=== PATIENT | male | born 1955 | race African-American/Black ===

== ENCOUNTER 2017-09-14 20:42 | Emergency (ER) | payer OTHER ==
[2017-09-14 21:30] LABS: #Eosinphils 0.2 thou/uL (0.0-0.7); #Lymphocytes 2.3 thou/uL (1.20-3.40); #Monocytes 0.8 thou/uL (0.11-0.59); #Neutrophils 6.7 thou/uL (1.40-6.50); %Basophils 0.4 % (0.0-1.0); %Eosinophils 1.9 % (0.0-10.0); %Lymphocytes 23.4 % (21.0-51.0); %Monocytes 7.6 % (0.0-10.0); %Neutrophils 66.7 % (42.0-75.0); Hemoglobin 14.8 g/dL (14.0-18.0); Mean Corpuscular HGB CONC 32.5 g/dL (32.0-36.0); Mean Corpuscular Hemoglobin 30.6 pg (27.0-31.0); Platelet Count 219 thou/uL (130-400); RBC Distribution Width 11.8 % (11.5-14.5); Red Blood Cell (RBC) Count 4.83 mill/uL (4.70-6.10)
--- NOTE | 2017-09-14 21:40 | RAD ---
PORTABLE CHEST: 09/14/17 HISTORY: Fell in shower. Syncopal episode. Heart size is within normal limits. The aorta is tortuous. The lungs are clear of infiltrates. Granul omas are noted in the left lung. IMPRESSION: No active intrathoracic disease. POS: [facility]
[2017-09-14 21:47] LABS: ALT (SGPT) 42 U/L (8-55); AST (SGOT) 21 U/L (5-34); Albumin 3.4 g/dL (3.5-5.0); Alkaline Phosphatase 56 U/L (40-150); Anion Gap 10 mmol/L (10-20); BUN (Urea Nitrogen) 20 mg/dL (8.4-25.7); Bilirubin, Total 0.4 mg/dL (0.2-1.2); CK (CPK) 177 U/L (30-200); Calc. Creatinine Clearance 0 mL/min (70-130); Calcium 8.3 mg/dL (7.8-10.44); Carbon Dioxide 27 mmol/L (22-29); Chloride 103 mmol/L (98-107); Estimated GFR-MDRD 74; Globulin 2.1 g/dL (2.4-3.5); Glucose 123 mg/dL (70-105); Lipase 17 U/L (8-78); Potassium 3.4 mmol/L (3.5-5.1); Protein, Total 5.5 g/dL (6.0-8.3); Sodium 137 mmol/L (136-145)
[2017-09-14 21:51] LABS: CKMB 1.8 ng/mL (0-6.6); Troponin I Less than 0.010 ng/mL (< 0.028)
--- NOTE | 2017-09-14 23:14 | CT ---
CT OF BRAIN PERFORMED WITHOUT CONTRAST ENHANCEMENT: 09/14/17 HISTORY: Syncope and collapse. Patient fell in shower. Two hematomas are noted. Head injury. The ventricular and cisternal system is within normal limits. There is no signs of intracerebral hemo rrhage or extra-axial fluid collections. No mass lesion or mass effect. Incidental note is made of a scalp lipoma in the right occipital region. No fractures. Mastoid air cells and visualized sinuses ar e clear. IMPRESSION: No acute intracranial abnormalities. POS: [facility]
== END 2017-09-14 23:55 | disposition home or self-care (01) ==
LOC: ERS 20:42
DX: R55 Syncope and collapse (principal); R22.0 Localized swelling, mass and lump, head; G43.909 Migraine, unspecified, not intractable, without status migrainosus; I10 Essential (primary) hypertension; F32.9 Major depressive disorder, single episode, unspecified; F17.210 Nicotine dependence, cigarettes, uncomplicated; Z79.899 Other long term (current) drug therapy; W06.XXXA Fall from bed, initial encounter
CPT/HCPCS: 36415; 70450; 71045; 80053; 82553; 83690; 84484; 85025; 93005

== ENCOUNTER 2024-01-16 06:50 | Inpatient (IN) | payer MEDICARE, MEDICAID ==
[2024-01-16] MEDS ORDERED: fentaNYL 50 mcg/mL 1 mL Vial ONE ×3 (07:33→11:53)
[2024-01-16 09:04] LABS: #Basophils Less than 0.03 10x3/uL (0.0-0.2); #Eosinphils Less than 0.03 10x3/uL (0.0-0.7); %Basophils 0.1 % (0.0-1.0); %Lymphocytes 1.1 % (21.0-51.0); %Monocytes 2.7 % (0.0-10.0); %Neutrophils 95.5 % (42.0-75.0); Hematocrit 27.6 % (42.0-52.0); Hemoglobin 8.3 g/dL (14.0-18.0); Mean Corpuscular HGB CONC 30.1 g/dL (32.0-36.0); Mean Corpuscular Hemoglobin 27.5 pg (27.0-31.0); Mean Corpuscular Volume 91.4 fL (78.0-98.0); Mean Platelet Volume 9.8 fL (7.4-10.4); Platelet Count 268 10x3/uL (130-400); RBC Distribution Width 20.2 % (11.5-14.5); Red Blood Cell (RBC) Count 3.02 mill/uL (4.70-6.10)
[2024-01-16] MEDS ORDERED: Iopamidol-370 76% 500 ML MDV (1 ML CHARGE) ONE (09:05)
[2024-01-16 09:19] LABS: ALT (SGPT) 13 U/L (8-55); AST (SGOT) 11 U/L (5-34); Albumin 2.3 g/dL (3.4-4.8); Alkaline Phosphatase 72 U/L (40-110); Anion Gap 20 mmol/L (10-20); BUN (Urea Nitrogen) 11 mg/dL (8.4-25.7); Bilirubin, Total 0.9 mg/dL (0.2-1.2); Calc. Creatinine Clearance 0 mL/min (70-130); Calcium 8.5 mg/dL (7.8-10.44); Carbon Dioxide 29 mmol/L (23-31); Chloride 97 mmol/L (98-107); Estimated GFR 98; Globulin 3.9 g/dL (2.4-3.5); Glucose 126 mg/dL (80-115); Potassium 3.2 mmol/L (3.5-5.1); Protein, Total 6.2 g/dL (5.8-8.1); Sodium 143 mmol/L (136-145)
[2024-01-16 09:25] LABS: Troponin I 0.014 ng/mL (< 0.028)
[2024-01-16] MEDS ORDERED: Sodium Chloride 0.9% 100 ML ONE (10:44)
[2024-01-16] MEDS ORDERED: Cefepime 1 GM VIAL ONE (10:44)
[2024-01-16] MEDS ORDERED: Vancomycin 1 GM/200 ML (FROZEN) BAG ONE (11:53)
[2024-01-16] MEDS ORDERED: Calcium Carbonate 500 MG ChewTAB PO PRN (14:44)
[2024-01-16] MEDS ORDERED: Ondansetron PF 4 MG/2 ML Vial IVP PRN (14:44)
[2024-01-16] MEDS ORDERED: Senokot S 8.6-50 MG TAB PO PRN (14:44)
[2024-01-16] MEDS ORDERED: Acetaminophen 325 MG TAB PO PRN (14:44)
[2024-01-16] MEDS ORDERED: Ipratropium/Albuterol 3 ML NEB NEB PRN (15:01)
[2024-01-16] MEDS ORDERED: Benzonatate 100 MG CAP PO PRN (15:01)
[2024-01-16] MEDS ORDERED: Morphine 2 MG/ML VIAL SLOW IVP PRN (15:01)
[2024-01-16] MEDS: Sodium Chloride 0.9% 500 ML IV SCH (15:45)
[2024-01-16] MEDS: Morphine 4 MG/ML VIAL SLOW IVP PRN ×2 (16:13→23:56)
[2024-01-16 16:19] VITALS: BMI 26.6
[2024-01-16] MEDS: Albumin 25% 25 GM (100 mL) BOT IVPB SCH (17:51)
[2024-01-16] MEDS: Ampicillin/Sulbactam 3 GM in Sodium Chloride 0.9% 100 ML IVPB SCH (18:01)
[2024-01-16] MEDS: HYDROmorphone 0.5 MG/0.5 ML SYRINGE SLOW IVP SCH (19:49)
[2024-01-16 23:08] LABS: Lactic Acid 1.5 mmol/L (0.5-2.2)
[2024-01-17 04:56] LABS: #Basophils Less than 0.03 10x3/uL (0.0-0.2); #Eosinphils Less than 0.03 10x3/uL (0.0-0.7); %Basophils 0.1 % (0.0-1.0); %Eosinophils 0.1 % (0.0-10.0); %Lymphocytes 1.6 % (21.0-51.0); %Monocytes 3.4 % (0.0-10.0); %Neutrophils 94.3 % (42.0-75.0); Hematocrit 22.6 % (42.0-52.0); Hemoglobin 6.9 g/dL (14.0-18.0); Mean Corpuscular HGB CONC 30.5 g/dL (32.0-36.0); Mean Corpuscular Hemoglobin 27.2 pg (27.0-31.0); Mean Platelet Volume 10.4 fL (7.4-10.4); Platelet Count 228 10x3/uL (130-400); RBC Distribution Width 19.9 % (11.5-14.5); Red Blood Cell (RBC) Count 2.54 mill/uL (4.70-6.10)
[2024-01-17 05:17] LABS: ALT (SGPT) 5 U/L (8-55); AST (SGOT) 10 U/L (5-34); Albumin 2.8 g/dL (3.4-4.8); Alkaline Phosphatase 63 U/L (40-110); Anion Gap 15 mmol/L (10-20); BUN (Urea Nitrogen) 9 mg/dL (8.4-25.7); Bilirubin, Total 0.8 mg/dL (0.2-1.2); Calc. Creatinine Clearance 124 mL/min (70-130); Calcium 8.6 mg/dL (7.8-10.44); Carbon Dioxide 31 mmol/L (23-31); Chloride 102 mmol/L (98-107); Estimated GFR 104; Glucose 112 mg/dL (80-115); Potassium 3.2 mmol/L (3.5-5.1); Protein, Total 5.8 g/dL (5.8-8.1); Sodium 145 mmol/L (136-145)
[2024-01-17] MEDS ORDERED: Digoxin 0.125 MG TAB PO SCH (09:00)
[2024-01-17] MEDS ORDERED: Tamsulosin HCl 0.4 MG CAP PO SCH (09:00)
[2024-01-17] MEDS ORDERED: fentaNYL 100 mcg/hour Patch TD SCH (09:00)
[2024-01-17] MEDS ORDERED: POLYETHYLENE GLYCOL PO SCH (09:00)
[2024-01-17] MEDS: Enoxaparin 40 MG (0.4 mL) SYRINGE SC SCH (09:43)
[2024-01-17] MEDS ORDERED: METOPROLOL TARTRATE 75 MG PO SCH (10:14)
[2024-01-17] MEDS ORDERED: ACETAMINOPHEN 650 MG PO PRN (10:14)
[2024-01-17] MEDS ORDERED: Iopamidol-370 76% 500 ML MDV (1 ML CHARGE) ONE (10:54)
[2024-01-17] MEDS: fentaNYL 100 mcg/hour Patch TD SCH (12:26)
[2024-01-17] MEDS: Finasteride 5 MG TAB PO SCH (12:26)
[2024-01-17 17:29] LABS: %Basophils 0.1 % (0.0-1.0); %Lymphocytes 1.5 % (21.0-51.0); %Monocytes 2.9 % (0.0-10.0); Hematocrit 22.7 % (42.0-52.0); Hemoglobin 6.9 g/dL (14.0-18.0); Mean Corpuscular HGB CONC 30.4 g/dL (32.0-36.0); Mean Corpuscular Hemoglobin 27.2 pg (27.0-31.0); Mean Corpuscular Volume 89.4 fL (78.0-98.0); Platelet Count 209 10x3/uL (130-400); Red Blood Cell (RBC) Count 2.54 mill/uL (4.70-6.10)
[2024-01-17 17:30] LABS: #Basophils Less than 0.03 10x3/uL (0.0-0.2); #Eosinphils Less than 0.03 10x3/uL (0.0-0.7)
[2024-01-17] MEDS: Mirtazapine 15 MG TAB PO SCH (20:56)
[2024-01-17] MEDS: Metoprolol Tartrate 25 MG TAB PO SCH (20:57)
[2024-01-17] MEDS: Senokot S 8.6-50 MG TAB PO SCH (20:57)
[2024-01-17] MEDS: OXcarbazepine 150 MG TAB PO SCH (20:57)
[2024-01-17] MEDS ORDERED: Mirtazapine 15 MG TAB PO SCH (21:00)
[2024-01-17] MEDS ORDERED: OXCARBAZEPINE 150 MG PO SCH (21:00)
[2024-01-18] MEDS: Acetaminophen 325 MG TAB PO PRN (05:07)
[2024-01-18 07:34] LABS: Hematocrit 29.7 % (42.0-52.0); Hemoglobin 9.1 g/dL (14.0-18.0); Mean Corpuscular HGB CONC 30.6 g/dL (32.0-36.0); Mean Corpuscular Hemoglobin 27.7 pg (27.0-31.0); Mean Corpuscular Volume 90.3 fL (78.0-98.0); Mean Platelet Volume 10.8 fL (7.4-10.4); Platelet Count 198 10x3/uL (130-400); RBC Distribution Width 19.1 % (11.5-14.5); Red Blood Cell (RBC) Count 3.29 mill/uL (4.70-6.10)
[2024-01-18 07:35] LABS: ALT (SGPT) 7 U/L (8-55); AST (SGOT) 9 U/L (5-34); Alkaline Phosphatase 91 U/L (40-110); Anion Gap 16 mmol/L (10-20); BUN (Urea Nitrogen) 6 mg/dL (8.4-25.7); Bilirubin, Total 1.2 mg/dL (0.2-1.2); Calc. Creatinine Clearance 113 mL/min (70-130); Calcium 8.6 mg/dL (7.8-10.44); Carbon Dioxide 33 mmol/L (23-31); Chloride 100 mmol/L (98-107); Estimated GFR 102; Glucose 91 mg/dL (80-115); Potassium 2.6 mmol/L (3.5-5.1); Sodium 146 mmol/L (136-145)
[2024-01-18 08:32] LABS: Anisocytosis SLIGHT = 6-15 cells HPF (0-5); Band 15 % (5-11); Burr Cells SLIGHT = 2-5 cells HPF (0-1); Lymphocytes 1 % (21-51); Monocytes 1 % (0-10); Neutrophil 83 % (42-75); Platelet Adequacy Comment Platelets Normal; Polychromasia SLIGHT = 2-3 cells HPF (0-2); Target Cells MODERATE= 6-15 cells HPF (0-1)
[2024-01-18] MEDS: Digoxin 0.125 MG TAB PO SCH (09:42)
[2024-01-18] MEDS: Tamsulosin HCl 0.4 MG CAP PO SCH (09:44)
[2024-01-18] MEDS: Potassium Chloride 20 MEQ TAB PO SCH (09:44)
[2024-01-18] MEDS: Polyethylene Glycol 3350 17 GM Packet PO SCH (09:45)
[2024-01-18] MEDS ORDERED: Magnevist 469MG/ML 20 ML VIAL ONE ×3 (11:03)
[2024-01-18] MEDS: fentaNYL 100 mcg/hour Patch TD SCH (11:16)
[2024-01-18] MEDS: Morphine 2 MG/ML VIAL SLOW IVP PRN (14:39)
[2024-01-19 06:57] LABS: #Eosinphils Less than 0.03 10x3/uL (0.0-0.7); %Basophils 0.4 % (0.0-1.0); %Eosinophils 0.1 % (0.0-10.0); %Lymphocytes 1.9 % (21.0-51.0); %Monocytes 2.9 % (0.0-10.0); %Neutrophils 93.9 % (42.0-75.0); Hematocrit 32.8 % (42.0-52.0); Hemoglobin 9.7 g/dL (14.0-18.0); Mean Corpuscular HGB CONC 29.6 g/dL (32.0-36.0); Mean Corpuscular Hemoglobin 28.1 pg (27.0-31.0); Mean Corpuscular Volume 95.1 fL (78.0-98.0); Mean Platelet Volume 12.5 fL (7.4-10.4); Platelet Count 139 10x3/uL (130-400); RBC Distribution Width 20.2 % (11.5-14.5); Red Blood Cell (RBC) Count 3.45 mill/uL (4.70-6.10)
[2024-01-19 09:32] VITALS: TEMP 97.6
[2024-01-19] MEDS: Morphine ER 15 MG TAB PO SCH (10:21)
[2024-01-19] MEDS: Fondaparinux Sodium 2.5 MG/0.5 ML SYRINGE SC SCH (10:59)
[2024-01-19 11:11] LABS: ALT (SGPT) 7 U/L (8-55); AST (SGOT) 9 U/L (5-34); Albumin 2.9 g/dL (3.4-4.8); Alkaline Phosphatase 81 U/L (40-110); Anion Gap 19 mmol/L (10-20); BUN (Urea Nitrogen) 7 mg/dL (8.4-25.7); Calc. Creatinine Clearance 124 mL/min (70-130); Calcium 8.7 mg/dL (7.8-10.44); Carbon Dioxide 27 mmol/L (23-31); Chloride 102 mmol/L (98-107); Estimated GFR 104; Globulin 3.7 g/dL (2.4-3.5); Glucose 81 mg/dL (80-115); Potassium 3.3 mmol/L (3.5-5.1); Protein, Total 6.6 g/dL (5.8-8.1); Sodium 145 mmol/L (136-145)
[2024-01-19 16:48] VITALS: BP 129/77
[2024-01-19] MEDS ORDERED: Morphine ER 15 MG TAB PO SCH (21:00)
[2024-01-19] MEDS ORDERED: Senokot S 8.6-50 MG TAB PO SCH (21:00)
[2024-01-20] MEDS ORDERED: Fondaparinux Sodium 2.5 MG/0.5 ML SYRINGE SC SCH (06:00)
== END 2024-01-19 16:35 | disposition home or self-care (01) | DRG 180 ==
LOC: SUATTDRO 06:50 → ERS 06:50 → MSONC 15:27
PROVIDERS: ADMIT Internal Medicine; ATTEND Internal Medicine
DX: C34.92 Malignant neoplasm of unspecified part of left bronchus or lung (principal); J96.21 Acute and chronic respiratory failure with hypoxia; E87.20 Acidosis, unspecified; J91.0 Malignant pleural effusion; J98.19 Other pulmonary collapse; E87.6 Hypokalemia; E88.09 Other disorders of plasma-protein metabolism, not elsewhere classified; D72.829 Elevated white blood cell count, unspecified; I10 Essential (primary) hypertension; I48.91 Unspecified atrial fibrillation; N40.0 Benign prostatic hyperplasia without lower urinary tract symptoms; Z66 Do not resuscitate; J44.9 Chronic obstructive pulmonary disease, unspecified; Z92.3 Personal history of irradiation; Z87.891 Personal history of nicotine dependence; Z79.01 Long term (current) use of anticoagulants; Z79.899 Other long term (current) drug therapy; Z92.21 Personal history of antineoplastic chemotherapy
CPT/HCPCS: 36415; 36416; 36430; 70553; 71045; 71275; 72157; 72158; 74177; 80053; 83605; 83880; 84145; 84484; 85025; 86850; 86900; 86901; 87040; 93005; 94760; 96374; 96375; 96376; A9579; J0295; J0692; J1170; J1650; J1652; J2270; J2272; J3010; J3370-JW; J3490; P9016; P9047; Q9967

== ENCOUNTER 2024-01-20 21:35 | Inpatient (IN) | payer MEDICARE, MEDICAID ==
[2024-01-20 23:01] LABS: Hematocrit 33.5 % (42.0-52.0); Mean Corpuscular HGB CONC 29.9 g/dL (32.0-36.0); Mean Corpuscular Hemoglobin 28.3 pg (27.0-31.0); Mean Corpuscular Volume 94.9 fL (78.0-98.0); Mean Platelet Volume 10.6 fL (7.4-10.4); Platelet Count 118 10x3/uL (130-400); RBC Distribution Width 19.6 % (11.5-14.5); Red Blood Cell (RBC) Count 3.53 mill/uL (4.70-6.10)
[2024-01-20 23:12] LABS: ALT (SGPT) Less than 5 U/L (8-55); AST (SGOT) 14 U/L (5-34); Albumin 2.6 g/dL (3.4-4.8); Alkaline Phosphatase 76 U/L (40-110); Anion Gap 23 mmol/L (10-20); BUN (Urea Nitrogen) 11 mg/dL (8.4-25.7); Bilirubin, Total 0.9 mg/dL (0.2-1.2); Calc. Creatinine Clearance 0 mL/min (70-130); Calcium 8.8 mg/dL (7.8-10.44); Carbon Dioxide 22 mmol/L (23-31); Chloride 102 mmol/L (98-107); Estimated GFR 101; Globulin 3.5 g/dL (2.4-3.5); Glucose 88 mg/dL (80-115); Lipase 6 U/L (8-78); Magnesium 1.6 mg/dL (1.6-2.6); Potassium 3.9 mmol/L (3.5-5.1); Protein, Total 6.1 g/dL (5.8-8.1); Sodium 143 mmol/L (136-145)
[2024-01-20 23:17] LABS: Troponin I Less than 0.010 ng/mL (< 0.028)
[2024-01-20 23:23] LABS: Anisocytosis MODERATE=16-30 cells HPF (0-5); Band 2 % (5-11); Hypochromia SLIGHT = 6-15 cells HPF (0-5); Lymphocytes 1 % (21-51); Macrocytosis SLIGHT = 6-15 cells HPF (0-5); Monocytes 3 % (0-10); Neutrophil 94 % (42-75); Ovalocytes SLIGHT = 2-5 cells HPF (0-1); Platelet Adequacy Comment Platelets Decreased; Polychromasia SLIGHT = 2-3 cells HPF (0-2); Smudge Cells 4.9 %
[2024-01-20] MEDS ORDERED: dilTIAZem 125 MG/25 ML SDV ONE (23:43)
[2024-01-21] MEDS ORDERED: fentaNYL 50 mcg/mL 1 mL Vial ONE (00:10)
[2024-01-21 01:20] LABS: INR-International Normal Ratio 1.3; PTT 43.5 sec (22.9-36.1); Prothrombin Time 16.3 sec (12.0-14.7)
[2024-01-21 01:21] LABS: D-Dimer Test 2.4 mcg/mL (0.27-0.43)
[2024-01-21 01:23] LABS: Magnesium 1.5 mg/dL (1.6-2.6)
[2024-01-21] MEDS ORDERED: Vancomycin (BATCH) 2 GM in Premix 1 BAG IVPB SCH (02:30)
[2024-01-21 02:40] LABS: Digoxin Less than 0.19 ng/mL (0.8-2.0)
[2024-01-21] MEDS ORDERED: Morphine 4 MG/ML VIAL ONE (03:33)
[2024-01-21] MEDS ORDERED: Magnesium 2 GM/50 ML BAG (IN WATER) ONE (03:41)
[2024-01-21] MEDS ORDERED: Acetaminophen 325 MG TAB PO PRN (04:16)
[2024-01-21] MEDS: dilTIAZem 125 MG in Sodium Chloride 0.9% 100 ML IVPB SCH (04:20)
[2024-01-21 04:57] LABS: Hematocrit 27.9 % (42.0-52.0); Hemoglobin 8.6 g/dL (14.0-18.0); Mean Corpuscular HGB CONC 30.8 g/dL (32.0-36.0); Mean Corpuscular Hemoglobin 28.3 pg (27.0-31.0); Mean Corpuscular Volume 91.8 fL (78.0-98.0); Platelet Count 166 10x3/uL (130-400); RBC Distribution Width 19.3 % (11.5-14.5); Red Blood Cell (RBC) Count 3.04 mill/uL (4.70-6.10)
[2024-01-21 05:14] LABS: ALT (SGPT) 8 U/L (8-55); AST (SGOT) 10 U/L (5-34); Albumin 2.4 g/dL (3.4-4.8); Alkaline Phosphatase 70 U/L (40-110); Anion Gap 16 mmol/L (10-20); BUN (Urea Nitrogen) 11 mg/dL (8.4-25.7); Bilirubin, Total 0.7 mg/dL (0.2-1.2); Calc. Creatinine Clearance 123 mL/min (70-130); Carbon Dioxide 28 mmol/L (23-31); Chloride 103 mmol/L (98-107); Estimated GFR 103; Globulin 3.1 g/dL (2.4-3.5); Glucose 112 mg/dL (80-115); Potassium 2.7 mmol/L (3.5-5.1); Protein, Total 5.5 g/dL (5.8-8.1); Sodium 144 mmol/L (136-145)
[2024-01-21 05:49] LABS: Anisocytosis MODERATE=16-30 cells HPF (0-5); Band 5 % (5-11); Eosinophils 1 % (0-10); Hypochromia SLIGHT = 6-15 cells HPF (0-5); Monocytes 1 % (0-10); Neutrophil 93 % (42-75); Ovalocytes SLIGHT = 2-5 cells HPF (0-1); Platelet Adequacy Comment Platelets Normal; Polychromasia SLIGHT = 2-3 cells HPF (0-2); Smudge Cells 2.9 %
[2024-01-21] MEDS ORDERED: Acetaminophen 325 MG TAB ONE (07:57)
[2024-01-21] MEDS ORDERED: Digoxin 0.125 MG TAB ONE (10:15)
[2024-01-21] MEDS ORDERED: LevoFLOXacin 250 MG TAB ONE (10:15)
[2024-01-21] MEDS ORDERED: Apixaban 5 MG TAB ONE (10:16)
[2024-01-21] MEDS ORDERED: Metoprolol Tartrate 50 MG TAB ONE (10:16)
[2024-01-21] MEDS: Digoxin 0.125 MG TAB PO SCH (10:25)
[2024-01-21] MEDS: Apixaban 5 MG TAB PO SCH (10:25)
[2024-01-21] MEDS: Metoprolol Tartrate 100 MG TAB PO SCH (10:26)
[2024-01-21] MEDS: LevoFLOXacin 750 MG TAB PO SCH (10:26)
[2024-01-21] MEDS ORDERED: Iopamidol-370 76% 500 ML MDV (1 ML CHARGE) ONE (12:55)
[2024-01-21] MEDS ORDERED: methylPREDNISolone Sod Succ 40 MG VIAL ONE (14:15)
[2024-01-21] MEDS: methylPREDNISolone Sod Succ/PF 125 MG/2 ML VIAL IVP SCH (14:19)
[2024-01-21] MEDS: oxyCODONE 5 MG TAB PO SCH (14:19)
[2024-01-21] MEDS: Ondansetron PF 4 MG/2 ML Vial IVP PRN (21:26)
[2024-01-21] MEDS: Morphine ER 15 MG TAB PO SCH (22:19)
[2024-01-22] MEDS: oxyCODONE 5 MG TAB PO PRN (00:58)
[2024-01-22 05:08] LABS: Hematocrit 27.9 % (42.0-52.0); Hemoglobin 8.5 g/dL (14.0-18.0); Mean Corpuscular HGB CONC 30.5 g/dL (32.0-36.0); Mean Corpuscular Hemoglobin 28.1 pg (27.0-31.0); Mean Corpuscular Volume 92.4 fL (78.0-98.0); Mean Platelet Volume 10.9 fL (7.4-10.4); Platelet Count 152 10x3/uL (130-400); Red Blood Cell (RBC) Count 3.02 mill/uL (4.70-6.10)
[2024-01-22 05:17] LABS: Anion Gap 17 mmol/L (10-20); BUN (Urea Nitrogen) 14 mg/dL (8.4-25.7); Calc. Creatinine Clearance 122 mL/min (70-130); Calcium 8.5 mg/dL (7.8-10.44); Carbon Dioxide 28 mmol/L (23-31); Chloride 103 mmol/L (98-107); Estimated GFR 102; Glucose 126 mg/dL (80-115); Magnesium 1.8 mg/dL (1.6-2.6); Potassium 3.3 mmol/L (3.5-5.1); Sodium 145 mmol/L (136-145)
[2024-01-22 05:37] LABS: Band 30 % (5-11); Hypochromia SLIGHT = 6-15 cells HPF (0-5); Metamyelocyte 1 % (0-0); Monocytes 1 % (0-10); Neutrophil 68 % (42-75); Platelet Adequacy Comment Platelets Normal; Polychromasia SLIGHT = 2-3 cells HPF (0-2)
[2024-01-22] MEDS: Sodium Chloride 0.9% 1,000 ML IV SCH (09:48)
[2024-01-23 06:11] LABS: Hematocrit 30.1 % (42.0-52.0); Hemoglobin 9.1 g/dL (14.0-18.0); Mean Corpuscular HGB CONC 30.2 g/dL (32.0-36.0); Mean Corpuscular Hemoglobin 27.7 pg (27.0-31.0); Mean Corpuscular Volume 91.8 fL (78.0-98.0); Mean Platelet Volume 11.1 fL (7.4-10.4); Platelet Count 131 10x3/uL (130-400); RBC Distribution Width 19.1 % (11.5-14.5); Red Blood Cell (RBC) Count 3.28 mill/uL (4.70-6.10)
[2024-01-23 06:25] LABS: Anion Gap 14 mmol/L (10-20); BUN (Urea Nitrogen) 19 mg/dL (8.4-25.7); Calc. Creatinine Clearance 127 mL/min (70-130); Calcium 8.7 mg/dL (7.8-10.44); Carbon Dioxide 30 mmol/L (23-31); Chloride 102 mmol/L (98-107); Estimated GFR 103; Glucose 117 mg/dL (80-115); Magnesium 1.7 mg/dL (1.6-2.6); Potassium 3.1 mmol/L (3.5-5.1); Sodium 143 mmol/L (136-145)
[2024-01-23 06:53] LABS: Anisocytosis MODERATE=16-30 cells HPF (0-5); Hypochromia MODERATE=16-30 cells HPF (0-5); Lymphocytes 1 % (21-51); Macrocytosis MODERATE=16-30 cells HPF (0-5); Neutrophil 99 % (42-75); Ovalocytes SLIGHT = 2-5 cells HPF (0-1); Platelet Adequacy Comment Platelets Normal; Polychromasia SLIGHT = 2-3 cells HPF (0-2); Smudge Cells 6.1 %
[2024-01-23] MEDS: fentaNYL 100 mcg/hour Patch TD SCH (10:32)
[2024-01-24 05:59] LABS: Hemoglobin 9.5 g/dL (14.0-18.0); Mean Corpuscular HGB CONC 29.7 g/dL (32.0-36.0); Mean Corpuscular Hemoglobin 27.8 pg (27.0-31.0); Mean Corpuscular Volume 93.6 fL (78.0-98.0); Mean Platelet Volume 11.3 fL (7.4-10.4); Platelet Count 126 10x3/uL (130-400); Red Blood Cell (RBC) Count 3.42 mill/uL (4.70-6.10)
[2024-01-24 06:13] LABS: Anion Gap 14 mmol/L (10-20); BUN (Urea Nitrogen) 15 mg/dL (8.4-25.7); Calc. Creatinine Clearance 131 mL/min (70-130); Carbon Dioxide 30 mmol/L (23-31); Chloride 102 mmol/L (98-107); Estimated GFR 104; Glucose 100 mg/dL (80-115); Magnesium 1.7 mg/dL (1.6-2.6); Potassium 3.3 mmol/L (3.5-5.1); Sodium 143 mmol/L (136-145)
[2024-01-24 06:22] LABS: Anisocytosis SLIGHT = 6-15 cells HPF (0-5); Band 27 % (5-11); Elliptocytes SLIGHT = 2-5 cells HPF (0-1); Hypochromia SLIGHT = 6-15 cells HPF (0-5); Metamyelocyte 2 % (0-0); Neutrophil 71 % (42-75); Platelet Adequacy Comment Platelets Normal; Polychromasia SLIGHT = 2-3 cells HPF (0-2)
[2024-01-24] MEDS: Senokot S 8.6-50 MG TAB PO SCH (20:36)
[2024-01-25] MEDS: Magnesium 2 GM/50 ML(in water) 2 GM in Premix 1 BAG IVPB SCH (09:15)
[2024-01-25] MEDS: Potassium Chloride 20 MEQ TAB PO SCH (09:16)
[2024-01-26 10:59] VITALS: BP 137/32; TEMP 96.5
== END 2024-01-26 10:00 | disposition home or self-care (01) | DRG 180 ==
LOC: ERS 21:35 → ERHOLD 01-21 03:52 → 2NO 01-21 15:01
PROVIDERS: ADMIT Internal Medicine; ATTEND Internal Medicine
DX: C34.90 Malignant neoplasm of unspecified part of unspecified bronchus or lung (principal); J96.21 Acute and chronic respiratory failure with hypoxia; J91.0 Malignant pleural effusion; C77.1 Secondary and unspecified malignant neoplasm of intrathoracic lymph nodes; I48.91 Unspecified atrial fibrillation; J44.9 Chronic obstructive pulmonary disease, unspecified; T85.898A Other specified complication of other internal prosthetic devices, implants and grafts, initial encounter; Z79.01 Long term (current) use of anticoagulants; Z79.899 Other long term (current) drug therapy; Z66 Do not resuscitate; D63.0 Anemia in neoplastic disease; Z87.891 Personal history of nicotine dependence; E83.42 Hypomagnesemia; Z51.5 Encounter for palliative care; E87.6 Hypokalemia
CPT/HCPCS: 36415; 70491; 71045; 71260; 80048; 80053; 80162; 83605; 83690; 83735; 83880; 84484; 85025; 85379; 85610; 85730; 87040; 93005; 93010; 96374; 96375; J2270; J2405; J2920; J2930; J3010; J3370; J3475; J3490; J7050; Q9967

== ENCOUNTER 2024-01-26 11:51 | Inpatient (IN) | payer MEDICARE, MEDICAID ==
[2024-01-26] MEDS ORDERED: Ondansetron PF 4 MG/2 ML Vial IVP PRN (14:47)
[2024-01-26] MEDS ORDERED: HYDROcodone/Acetaminophen 5/325 mg Tablet PO PRN (14:47)
[2024-01-26] MEDS ORDERED: Acetaminophen 325 MG TAB PO PRN (14:47)
[2024-01-26] MEDS ORDERED: Senokot S 8.6-50 MG TAB PO PRN (14:47)
[2024-01-26] MEDS ORDERED: Calcium Carbonate 500 MG ChewTAB PO PRN (14:47)
[2024-01-26] MEDS ORDERED: Ipratropium/Albuterol 3 ML NEB NEB PRN (14:57)
[2024-01-26 15:13] LABS: ALT (SGPT) 7 U/L (8-55); AST (SGOT) 11 U/L (5-34); Albumin 3.1 g/dL (3.4-4.8); Alkaline Phosphatase 104 U/L (40-110); Anion Gap 14 mmol/L (10-20); BUN (Urea Nitrogen) 25 mg/dL (8.4-25.7); Bilirubin, Total 0.9 mg/dL (0.2-1.2); Calc. Creatinine Clearance 0 mL/min (70-130); Calcium 9.6 mg/dL (7.8-10.44); Carbon Dioxide 35 mmol/L (23-31); Chloride 103 mmol/L (98-107); Estimated GFR 94; Globulin 3.6 g/dL (2.4-3.5); Glucose 122 mg/dL (80-115); Potassium 3.6 mmol/L (3.5-5.1); Protein, Total 6.7 g/dL (5.8-8.1); Sodium 148 mmol/L (136-145)
[2024-01-26 15:18] LABS: Troponin I 0.014 ng/mL (< 0.028)
[2024-01-26 15:19] LABS: Anisocytosis SLIGHT = 6-15 cells HPF (0-5); Band 19 % (5-11); Hypochromia SLIGHT = 6-15 cells HPF (0-5); Lymphocytes 1 % (21-51); Metamyelocyte 1 % (0-0); Monocytes 1 % (0-10); Neutrophil 78 % (42-75); Ovalocytes SLIGHT = 2-5 cells HPF (0-1); Platelet Adequacy Comment Platelets Decreased; Polychromasia SLIGHT = 2-3 cells HPF (0-2); Target Cells SLIGHT = 2-5 cells HPF (0-1)
[2024-01-26 15:21] LABS: Hematocrit 32.3 % (42.0-52.0); Mean Corpuscular Hemoglobin 27.9 pg (27.0-31.0); Mean Platelet Volume 11.8 fL (7.4-10.4); Platelet Count 104 10x3/uL (130-400); RBC Distribution Width 18.9 % (11.5-14.5); Red Blood Cell (RBC) Count 3.59 mill/uL (4.70-6.10)
[2024-01-26] MEDS: Midodrine HCl 5 MG TAB PO SCH ×2 (16:26→20:18)
[2024-01-26] MEDS: Sodium Chloride 0.9% 1,000 ML IV SCH (17:45)
[2024-01-26] MEDS: Albumin 25% 25 GM (100 mL) BOT IVPB SCH (17:50)
[2024-01-26] MEDS: Ipratropium Bromide 2.5 ml Neb NEB SCH (18:09)
[2024-01-26 19:53] VITALS: BMI 24.3
[2024-01-26] MEDS: Morphine ER 15 MG TAB PO SCH (19:59)
[2024-01-26] MEDS: Mirtazapine 15 MG TAB PO SCH (20:18)
[2024-01-26] MEDS: Apixaban 5 MG TAB PO SCH (20:18)
[2024-01-26] MEDS ORDERED: Apixaban 5 MG TAB PO SCH (21:00)
[2024-01-27] MEDS: Midodrine HCl 5 MG TAB PO SCH ×2 (01:32→07:54)
[2024-01-27] MEDS: LevoFLOXacin 750 MG TAB PO SCH (07:09)
[2024-01-27] MEDS: Digoxin 0.125 MG TAB PO SCH (07:53)
[2024-01-27] MEDS: Finasteride 5 MG TAB PO SCH (07:54)
[2024-01-27] MEDS ORDERED: Morphine 2 MG/ML VIAL SLOW IVP PRN (08:33)
[2024-01-27] MEDS ORDERED: Lorazepam 2 MG/ML VIAL SLOW IVP PRN (08:34)
[2024-01-27] MEDS ORDERED: fentaNYL 50 mcg/hour Patch TD SCH (09:00)
[2024-01-27 10:05] VITALS: BP 77/45; TEMP 98
[2024-01-27 13:06] VITALS: BMI 24.3
== END 2024-01-27 16:28 | disposition expired | DRG 181 ==
LOC: SUATTDRO 11:51 → ERS 11:51 → 2SE 16:13 → MSONC 01-27 09:56
PROVIDERS: ADMIT Internal Medicine; ATTEND Internal Medicine
PROC: 30233J1 Transfusion of Nonautologous Serum Albumin into Peripheral Vein, Percutaneous Approach (ICD-10-PCS; principal; 2024-01-26)
DX: C34.90 Malignant neoplasm of unspecified part of unspecified bronchus or lung (principal); J90 Pleural effusion, not elsewhere classified; J96.11 Chronic respiratory failure with hypoxia; Z66 Do not resuscitate; Z51.5 Encounter for palliative care; J44.9 Chronic obstructive pulmonary disease, unspecified; I48.91 Unspecified atrial fibrillation; I10 Essential (primary) hypertension; Z98.890 Other specified postprocedural states; G89.3 Neoplasm related pain (acute) (chronic); E78.5 Hyperlipidemia, unspecified; G43.909 Migraine, unspecified, not intractable, without status migrainosus; F32.A Depression, unspecified; F17.210 Nicotine dependence, cigarettes, uncomplicated; Z79.01 Long term (current) use of anticoagulants; Z79.899 Other long term (current) drug therapy
CPT/HCPCS: 71045; 80053; 84484; 85025; 93005; 94640; J7050; P9047